=== PATIENT | female | born 1950 | race Caucasian/White ===

== ENCOUNTER 2020-08-24 14:03 | Emergency (ER) | payer OTHER, BC ==
[2020-08-24 14:35] VITALS: BP 141/96; PULSE 99; TEMP 99.3; BMI 27.4
[2020-08-24] MEDS ORDERED: CLINDAMYCIN IVPB 300 MG in DEXTROSE 5%-WATER - 48 ML IVPB ONE (14:40)
[2020-08-24] MEDS ORDERED: ACETAMINOPHEN 1000 MG/100 ML VIAL (NON FORMULARY) IVPB ONE (14:52)
== END 2020-08-24 16:11 | disposition home or self-care (01) ==
LOC: FER 14:03
PROC: 3E0333Z Introduction of Anti-inflammatory into Peripheral Vein, Percutaneous Approach (ICD-10-PCS; principal; 2020-08-24)
PROC: 3E03329 Introduction of Other Anti-infective into Peripheral Vein, Percutaneous Approach (ICD-10-PCS; 2020-08-24)
DX: K04.7 Periapical abscess without sinus (principal)
CPT/HCPCS: 99284-25; J0131